=== PATIENT | female | born 1990 | race Caucasian/White ===

== ENCOUNTER → 2017-08-10 | Outpatient (CLI) | payer SELFPAY ==
--- NOTE | 2017-08-10 19:36 | KCIC ---
Bilateral diagnostic digital mammograms: Reason for examination: Bilateral breast lumps inferiorly. History of breast implants with scarring inferiorly. No previous examinations for comparison. Interpretation was made with the benefit of CAD. The skin and nipples show no abnormalities. No abnormal axillary lymph nodes are seen. Bilateral breast implants are present and appear to be intact. The breast parenchyma is heterogeneously dense. (Breast density: Category C) There are nodular areas with thin rim-like calcifications present at the 5:30 position of the left breast and 5:30 to 6:00 position of the right breast which correspond to the areas of clinical concern and have appearance consistent with calcifying fat necrosis. There are no other dominant masses, suspicious calcifications or architectural distortion. Impression: There are areas of calcifying fat necrosis at approximately the 5:30 positions bilaterally corresponding to the areas of clinical concern. Ultrasound to follow. Your patient's mammogram demonstrates that she has dense breast tissue (breast density category C or D), which could hide abnormalities, and if she has other risk factors for breast cancer that have been identified, she might benefit from supplemental screening tests that may be suggested by you as her ordering physician. Dense breast tissue, in and of itself, is a relatively common condition. Therefore, this information is not provided to cause undue concern, but rather to raise your awareness and to promote discussion with your patient regarding the presence of other risk factors, in addition to dense breast tissue. Your patient's mammography results will be sent to her. BI-RADS Category 0: Incomplete. Ultrasound to follow. Bilateral breast ultrasound: Ultrasound examination was performed bilaterally with attention to the areas of clinical and mammographic concern. In the right breast at the 4:00 position 4.5 cm from the nipple, there is a 6.7 mm hypoechoic lesion consistent with some focal fibrocystic change. In the 12:00 position 1 cm from the nipple, there are 2 small circumscribed nodules which may represent areas of fat necrosis or small fibrocystic lesions measuring 7.3 and 6 mm in greatest dimension. In the 6:30 position 6 cm from the nipple and corresponding to the area of clinical concern, there is a hypoechoic area with some calcification corresponding to the area of fat necrosis seen mammographically and measures 1.8 cm in greatest dimension. No abnormal appearing lymph nodes are seen in right axilla. In the left breast at the 5:30 position 6 cm from the nipple, there is a hypoechoic area with some calcification consistent with fat necrosis measuring 8.3 mm in greatest dimension which corresponds to the area of mammographic concern. No other focal lesions are seen. No abnormal appearing lymph nodes are seen in the left axilla. IMPRESSION: Areas of fat necrosis in the right breast at the 6:30 position and the left breast at the 5:30 position corresponding to the areas of mammographic and clinical concern. Additional small hypoechoic lesions in the right breast in the 4:00 and 12:00 positions which may represent fat necrosis or fibrocystic changes but recommend close follow-up with reevaluation in 6 months sonographically. BI-RADS Category 3: Probably Benign. "Our facility is accredited by the [employer] Mammography Program." This patient's information has been entered into a reminder system for the patient to be notified with the results of her examination and a target date for the next mammogram. Electronically signed by: Karina Richardson MD (08/10/2017 7:33 PM) [id number]
== END | disposition home or self-care (01) ==
LOC: KCIC MAMMO 09:20
PROVIDERS: ATTEND Obstetrics & Gynecology
DX: N63.10 Unspecified lump in the right breast, unspecified quadrant (principal); N63.20 Unspecified lump in the left breast, unspecified quadrant; Z41.1 Encounter for cosmetic surgery; R92.2 Inconclusive mammogram; R92.1 Mammographic calcification found on diagnostic imaging of breast
CPT/HCPCS: 76641; G0204; 77066